=== PATIENT | female | born 1960 | race Caucasian/White ===

== ENCOUNTER → 2017-11-28 | Outpatient (CLI) | payer OTHER ==
[~2017-11-28] MED LIST: CELEBREX 200 M200 M1 PO; FISH OIL500 M1 PO; FLAX OIL1000 MG PO; LISINOPRIL10 MG PO; MECLIZINE HCL25 M1 PO; SIMVASTATIN40 MG PO; SYNTHROID100 MCG PO; TRIAMTERENE-HC1 EAC1 PO
== END ==
LOC: RAD 15:54
DX: S92.355A Nondisplaced fracture of fifth metatarsal bone, left foot, initial encounter for closed fracture (principal); M77.32 Calcaneal spur, left foot; X58.XXXA Exposure to other specified factors, initial encounter; Y93.89 Activity, other specified; Y92.89 Other specified places as the place of occurrence of the external cause; Y99.8 Other external cause status

== ENCOUNTER → 2018-04-11 | Outpatient (CLI) | payer OTHER | LOC: NUC 04-10 08:56 | DX: N91.2 Amenorrhea, unspecified (principal); R29.890 Loss of height; I10 Essential (primary) hypertension; E78.5 Hyperlipidemia, unspecified; G47.33 Obstructive sleep apnea (adult) (pediatric); Z78.0 Asymptomatic menopausal state ==